=== PATIENT | female | born 1945 | race Caucasian/White ===

== ENCOUNTER → 2016-08-23 | Outpatient (CLI) | payer MEDICARE ==
[~2016-08-23] MED LIST: CINN500T PO; DIOV160T60 PO; FISH120014 PO; HYDR12.56 PO; MAGN500T4 PO; RED600TA PO; VITA200017 PO
== END ==
LOC: EREF 07:49
PROVIDERS: ATTEND Family Medicine
DX: Z00.00 Encounter for general adult medical examination without abnormal findings (principal)

== ENCOUNTER → 2017-10-04 | Outpatient (CLI) | payer MEDICARE | LOC: ELAB 08:25 | PROVIDERS: ATTEND Family Medicine | DX: Z00.8 Encounter for other general examination (principal) ==